=== PATIENT | female | born 1980 | race Caucasian/White ===

== ENCOUNTER 2017-03-28 23:48 | Emergency (ER) | payer SELFPAY ==
[~2017-03-28] VITALS: Ht 157.5 cm; Wt 63.0 kg
[2017-03-29 00:27] VITALS: BP 117/77
== END 2017-03-29 01:10 | disposition home or self-care (01) ==
LOC: ER 23:50
DX: R07.9 Chest pain, unspecified (principal); R20.0 Anesthesia of skin; F17.210 Nicotine dependence, cigarettes, uncomplicated
CPT/HCPCS: 81025; 93005; 99283; Z7610

== ENCOUNTER 2019-03-06 00:19 | Emergency (ER) | payer MEDICAID ==
[~2019-03-06] VITALS: Ht 162.6 cm; Wt 60.0 kg
[2019-03-06] MEDS ORDERED: LORAZEPAM 2MG/ML CPJ IV ONE (01:15)
[2019-03-06 01:23] LABS: BASOPHILS % 0.7 % (0.0-2.0); EOSINOPHILS % 2.3 % (0.0-5.0); HEMATOCRIT. 36.5 % (36.0-48.0); HEMOGLOBIN. 12.8 g/dL (12.0-16.0); LYMPHOCYTES % 37.6 % (20.0-50.0); MEAN CORPUSCULAR HEMOGLOBIN 31.1 pg (28.0-32.0); MEAN PLATELET VOLUME 9.7 fl (7.4-10.4); MONOCYTES % 7.2 % (2.0-8.0); NEUTROPHILS % 52.2 % (40.0-76.0); PLATELET 201 x1000/uL (130-400); RED CELL DISTRIBUTION WIDTH 12.6 % (11.6-14.6)
[2019-03-06 01:24] LABS: CHLORIDE 108 mEq/L (98-107)
[2019-03-06 04:13] VITALS: BP 135/78
== END 2019-03-06 04:14 | disposition home or self-care (01) ==
LOC: ER 00:57
DX: R07.89 Other chest pain (principal)
CPT/HCPCS: 36415; 71045; 80053; 81025; 84484; 85025; 85379; 93005; 96374; 99284; J2060